=== PATIENT | male | born 1995 | race African-American/Black ===

== ENCOUNTER 2018-03-25 15:46 | Emergency (ER) | payer MEDICAID ==
[~2018-03-25] VITALS: Ht 165.1 cm; Wt 63.0 kg
[2018-03-25] MEDS ORDERED: DEXAMETHASONE 10 MG/ML VIAL IM ONE (21:15)
[2018-03-25] MEDS ORDERED: ALBUTEROL (0.5%) 2.5MG/0.5ML NEB HHN ONE (21:15)
[2018-03-25 22:23] VITALS: BP 115/84
== END 2018-03-25 22:24 | disposition home or self-care (01) ==
LOC: ER 15:46
DX: J06.9 Acute upper respiratory infection, unspecified (principal); F17.200 Nicotine dependence, unspecified, uncomplicated; Z98.890 Other specified postprocedural states
CPT/HCPCS: 94640; 96372; 99283; J1100; J7611

== ENCOUNTER 2023-01-27 05:40 | Emergency (ER) | payer MEDICAID ==
[~2023-01-27] VITALS: Ht 167.6 cm; Wt 84.6 kg
[2023-01-27 05:45] VITALS: O2SAT 98
[2023-01-27] MEDS ORDERED: TETANUS, DIPHTHERIA, PERTUSSIS VAC/PF 0.5ML (>10YR OLD) IM ONE (09:15)
[2023-01-27 09:27] VITALS: BP 130/96; PULSE 90; RESP 18; TEMP 98.7
== END 2023-01-27 09:45 | disposition home or self-care (01) ==
LOC: ER 05:40
DX: S61.411A Laceration without foreign body of right hand, initial encounter (principal); J45.909 Unspecified asthma, uncomplicated; W26.9XXA Contact with unspecified sharp object(s), initial encounter; Y93.89 Activity, other specified; Y92.89 Other specified places as the place of occurrence of the external cause; Y99.8 Other external cause status
CPT/HCPCS: 90715; 90471; 99283; Z7610